=== PATIENT | male | born 1995 | race Two or more races ===

== ENCOUNTER 2024-08-08 22:30 | Emergency (ER) | payer BC ==
[~2024-08-08] VITALS: Ht 162.6 cm; Wt 77.1 kg
[2024-08-09] MEDS ORDERED: KETOROLAC TROMETHAMINE 10 MG TABLET PO STA (01:00)
[2024-08-09] MEDS ORDERED: KETO10TA2 PO (02:49)
== END 2024-08-09 02:53 ==
LOC: ER 22:30
DX: S39.848A Other specified injuries of external genitals, initial encounter (principal); X58.XXXA Exposure to other specified factors, initial encounter; Y93.89 Activity, other specified; Y92.89 Other specified places as the place of occurrence of the external cause; Y99.8 Other external cause status